=== PATIENT | male | born 1960 | race Caucasian/White ===

== ENCOUNTER 2019-10-18 08:41 | Inpatient (IN) | payer BC, SELFPAY ==
[2019-10-18] MEDS ORDERED: MORPHINE SULFATE 4 MG INJ IV PRN (17:03)
[2019-10-18] MEDS ORDERED: Phenergan 25 MG INJ IV PRN (17:03)
[2019-10-18] MEDS ORDERED: PHARMACY DOSING REQUIRED: VANCOMYCIN MC ONE (17:15)
[2019-10-18 17:23] LABS: Hematocrit 48.1 % (42-50); Hemoglobin 16.3 gm/dl (12.5-18.0); Mean Cell Volume 95.2 fl (78-100); Mean Corpuscular Hemoglobin 32.3 pg (26-32); Mean Corpuscular Hgb Concent. 33.9 g/dl (32-36); Mean Platelet Volume 10.5 fl (7.5-11.0); Platelet Count 315 K/mm3 (150-450); Red Blood Count 5.05 M/mm3 (4.1-5.6); Red Cell Distribution Width 12.8 % (11.5-14.0); White Blood Count 9.5 K/mm3 (4.0-10.5)
[2019-10-18 17:29] LABS: ALBUMIN 4.3 g/dL (3.5-5.0); ALKALINE PHOSPHATASE 129 U/L (38-126); ANION GAP 20.2 MEQ/L (5-15); BLOOD UREA NITROGEN 20 mg/dL (9-20); CHLORIDE 92 mmol/L (98-107); Calcium 9.5 mg/dL (8.4-10.2); Carbon Dioxide 24 mmol/L (22-30); Creatinine 1 1.18 mg/dL (0.66-1.25); Glucose 436 mg/dL (74-106); Potassium 3.9 mmol/L (3.5-5.1); SGOT/AST 22 U/L (17-59); SGPT/ALT 16 U/L (0-50); SODIUM 133 mmol/L (137-145); Total Protein 8.5 g/dL (6.3-8.2)
[2019-10-18] MEDS ORDERED: VANCOMYCIN 2 GRAM/400 ML BAG 2 GM/400 ML PIGGYBACK IV SCH (18:00)
--- NOTE | 2019-10-18 19:16 | PCM.HP ---
History of Present Illness - Chief Complaint Chief Complaint: abcess History of Present Illness: is a 58 year old male pt of Dr. Craig with PMHx diabetes mellitus ( untreated) who was seen in today by GOVERNMENT RELATIONS DIRECTOR c/o large swelling on his head x 2 weeks. He initially hit his head on a pest control applicator and noticed the area getting gradually bigger. Denies LOC. Denies fever. He did notice some yellow drainage. At a wound cx was taken and I was called for direct admission ( after Dr. Craig was notified). Of note, pt says his BS was 600 a few years ago when he was septic. His BS today was 436 but he was denying to the nurses that he was diabetic. He states that he was on vancomycin when he went home from [facility] with a PICC line and didn't have any trouble with it. - Review of Systems Musculoskeletal: Injury (to head 2 wks ago) Skin: Other (swelling on scalp with drainage) Medications & Allergies Home Medications: Home Medication List No Reportable Medications [No Reported Medications] 10/18/19 [History Confirmed 10/18/19] Allergies/Adverse Reactions: Allergies Allergy/AdvReac Type Severity Reaction Status Date / Time Penicillins Allergy Severe Hives Verified 10/18/19 17:12 Sulfa (Sulfonamide Allergy Severe Hives Verified 10/18/19 17:12 Antibiotics) - Past Medical History Past Medical History: No Neurological History: No Pertinent History ENT History: No Pertinent History Cardiac History: No Pertinent History Respiratory History: No Pertinent History Endocrine Medical History: Diabetes Type I Musculoskelatal History: No Pertinent History GI Medical History: No Pertinent History History: Other Pyscho-Social History: No Pertinent History Male Reproductive Disorders: No Pertinent History Comment: reports hx of diabetes though pt states "I am not diabetic" states he was septic at one time and was placed on insulin at that time though it was only for a short period and is now on nothing. hx of MSSA - Past Surgical History Past Surgical History: Yes Neuro Surgical History: No Pertinent History Cardiac History: No Pertinent History Respiratory Surgery: No Pertinent History GI Surgical History: Hernia Repair Genitourinary Surgical Hx: No Pertinent History Musculskeletal Surgical Hx: No Pertinent History Male Surgical History: No Pertinent History - Social History Smoking Status: Never smoker Exposure to second hand smoke: No Alcohol: None - Physical Exam Vital Signs: Vital Signs - 24 hr Temp Pulse Resp BP Pulse Ox 10/18/19 18:05 99.6 F 103 H 18 130/88 99 General Appearance: no apparent distress, alert Neurologic Exam: oriented x 3, cooperative Eye Exam: eyes nml inspection Ears, Nose, Throat Exam: moist mucous membranes Neck Exam: normal inspection Respiratory Exam: normal breath sounds, lungs clear, No crackles/rales, No rhonchi, No wheezing Cardiovascular Exam: regular rate/rhythm, normal heart sounds, No murmur Gastrointestinal/Abdomen Exam: soft, normal bowel sounds, No tenderness, No distention, No mass, No guarding, No rebound Back Exam: normal inspection, No rash Extremity Exam: normal inspection, No pedal edema, No swelling Skin Exam: warm, dry, No rash Wound Assessment: L parietal scalp with baseball sized firm lesion that is somewhat fluctuant and has a pustular central area. Results - Labs Lab/Micro Results: Lab Results-Last 24 Hours 10/18/19 10/18/19 10/18/19 Range/Units 17:00 17:00 17:20 WBC 9.5 (4.0-10.5) K/mm3 RBC 5.05 (4.1-5.6) M/mm3 Hgb 16.3 (12.5-18.0) gm/dl Hct 48.1 (42-50) % MCV 95.2 (78-100) fl MCH 32.3 H (26-32) pg MCHC 33.9 (32-36) g/dl RDW 12.8 (11.5-14.0) % Plt Count 315 (150-450) K/mm3 MPV 10.5 (7.5-11.0) fl Sodium 133 L (137-145) mmol/L Potassium 3.9 (3.5-5.1) mmol/L Chloride 92 L (98-107) mmol/L Carbon Dioxide 24 (22-30) mmol/L Anion Gap 20.2 H (5-15) MEQ/L BUN 20 (9-20) mg/dL Creatinine 1.18 (0.66-1.25) mg/dL Estimated GFR > 60.0 ML/MIN Glucose 436 H (74-106) mg/dL Hemoglobin A1c > 14.00 H (4.5-6.0) % Calcium 9.5 (8.4-10.2) mg/dL Total Bilirubin 0.60 (0.2-1.3) mg/dL AST 22 (17-59) U/L ALT 16 (0-50) U/L Alkaline Phosphatase 129 H (38-126) U/L Serum Total Protein 8.5 H (6.3-8.2) g/dL Albumin 4.3 (3.5-5.0) g/dL Assessment/Plan (1) Abscess Current Visit: Yes Status: Acute Assessment & Plan: Dr. Cobb saw the pt, thank you, and will be doing I&D in the morning. Likely started as hematoma and now abscessed. Pt will be put on vancomycin. Culture is pending, done at [facility] today. Code(s): L02.91 - CUTANEOUS ABSCESS, UNSPECIFIED (2) Diabetes mellitus Current Visit: Yes Status: Acute Qualifiers: Diabetes mellitus type: type 2 Diabetes mellitus alf insulin use: without terminal worker use Diabetes mellitus complication status: without complication Qualified Code(s): E11.9 - Type 2 diabetes mellitus without complications Assessment & Plan: A1c is pending. I explained to pt that his sugar should never be over 200, that he is in fact diabetic. Will need to start meds to go home on and diabetic education. Code(s): E11.9 - TYPE 2 DIABETES MELLITUS WITHOUT COMPLICATIONS
[2019-10-18] MEDS: Lactated Ringers 1,000 ML IV SCH (19:48)
[2019-10-18 19:51] LABS: Eosinophil 2 % (0.00-3.0); Lymphocytes 16 % (24-44); Monocyte 13 % (0.0-12.0); Neutrophils 69 % (36.-66.); Platelet Estimate NORMAL (NORMAL); Total Cells Counted 100
[2019-10-18] MEDS: TYLENOL 325 MG PO PRN (21:25)
[2019-10-18] MEDS: HUMALOG SQ PRN (23:03)
[2019-10-19 05:26] LABS: Hematocrit 44.8 % (42-50); Mean Cell Volume 96.3 fl (78-100); Mean Corpuscular Hemoglobin 32.3 pg (26-32); Mean Corpuscular Hgb Concent. 33.5 g/dl (32-36); Mean Platelet Volume 9.7 fl (7.5-11.0); Platelet Count 297 K/mm3 (150-450); Red Blood Count 4.65 M/mm3 (4.1-5.6); Red Cell Distribution Width 12.7 % (11.5-14.0); White Blood Count 8.2 K/mm3 (4.0-10.5)
[2019-10-19 05:46] LABS: ALBUMIN 3.5 g/dL (3.5-5.0); ALKALINE PHOSPHATASE 90 U/L (38-126); ANION GAP 15.2 MEQ/L (5-15); BLOOD UREA NITROGEN 18 mg/dL (9-20); CHLORIDE 98 mmol/L (98-107); Calcium 8.6 mg/dL (8.4-10.2); Carbon Dioxide 22 mmol/L (22-30); Creatinine 1 0.95 mg/dL (0.66-1.25); Glucose 248 mg/dL (74-106); Potassium 3.9 mmol/L (3.5-5.1); SGOT/AST 20 U/L (17-59); SGPT/ALT 13 U/L (0-50); SODIUM 132 mmol/L (137-145); Total Protein 6.9 g/dL (6.3-8.2)
[2019-10-19 06:22] LABS: BAND 1 % (0.0-2.0); Lymphocytes 29 % (24-44); Monocyte 6 % (0.0-12.0); Neutrophils 64 % (36.-66.); Platelet Estimate NORMAL (NORMAL); Total Cells Counted 100
--- NOTE | 2019-10-19 08:03 | CONS ---
CONSULT DATE: 10/18/2019 HISTORY: The patient a week and a half ago was helping a relative with lawnmower samir raising his head up striking his left head. He had some pain and swelling. He had some drainage here over the past few days. He was admitted by Dr. Craig. PAST MEDICAL HISTORY: He was quite sick of unknown infection cause and was at back in 2016, he said. PAST SURGICAL HISTORY: He denied prior surgery on his head. MEDICATIONS: He has been on some Novolin, metoprolol. ALLERGIES: PENICILLIN. CEFAZOLIN. SULFA. IT SOUNDS LIKE HE TOOK SOME VANCOMYCIN IN THE PAST. FAMILY HISTORY: Negative in regards to this problem. SOCIAL HISTORY: No smoking. REVIEW OF SYSTEMS: Fourteen systems reviewed per admission assessment, history and physical. No chest pain or palpitations. He was afebrile earlier. Other systems negative or noncontributory as above and per preadmission questionnaire. LAB DATA AND TESTS: He had some cultures taken apparently. White count on the chart. Glucose was 400. PHYSICAL EXAMINATION: Blood pressure 122/72, heart rate 68. GENERAL: No acute distress. HEENT: Sclera nonicteric. No blood per eyes, ears, nose or mouth. He has a raised area just slight erythema, no significant fluctuance left parietal area posterior scalp. NECK: No JVD. CHEST: Equal excursion, nonlabored breathing. CVS: Regular rhythm and pulse. ABDOMEN: Soft, nontender. EXTREMITIES: No cyanosis. NEURO: Alert, moving extremities grossly symmetrically. No gross localized motor deficit. IMPRESSION: Blunt head trauma a week and a half or so ago, some swelling and drainage. It sounds like he probably had initial hematoma whether it became infected or just a hematoma trying to drain, either way he will be started on some empiric antibiotics. He is not NPO currently and OR team is not here at this time of night. Will see about getting him into the OR schedule tomorrow for drainage and/or possible debridement. General risk of bleeding or infection, risk of ongoing infection possibly requiring other procedure, general risk of anesthesia, deep venous thrombosis, pulmonary embolism, pneumonia but not limited to, general risk of aches and pains, burning or numbness senior living or chronic in nature. Consent is obtained, will proceed tomorrow when OR time available.
[2019-10-19 09:08] LABS: Appearance CLEAR (CLEAR); Bilirubin NEGATIVE (NEGATIVE); Blood SMALL Ery/ul (0-5); Glucose >=500 mg/dL (NEGATIVE); Ketones TRACE (NEGATIVE); Leukocyte Esterase NEGATIVE (NEGATIVE); Mucus SLIGHT /HPF (NEGATIVE); Nitrite NEGATIVE (NEGATIVE); Protein,Urine Dip 30 (Negative); Specific Gravity 1.029 (1.005-1.025); Urobilinogen NEGATIVE mg/dL (0-1)
[2019-10-19] MEDS: HUMALOG SQ PRN ×3 (09:40→20:38)
[2019-10-19] MEDS: VANCOMYCIN 1.5 GRAM/300 ML BAG 1.5 GM/300 ML PIGGYBACK IV SCH ×2 (09:40→22:22)
[2019-10-19] MEDS: Lactated Ringers 1,000 ML IV SCH ×2 (12:39→17:48)
[2019-10-19] MEDS: TYLENOL 325 MG PO PRN (12:50)
[2019-10-19] MEDS: Lantus Insulin SQ SCH (14:04)
[2019-10-19] MEDS ORDERED: Xylocaine-Mpf 2% 5 Ml Vial ONE (14:44)
[2019-10-19] MEDS ORDERED: Decadron 4 MG INJ ONE (14:44)
[2019-10-19] MEDS ORDERED: SUBLIMAZE 100 MCG/2 ML ONE (14:44)
[2019-10-19] MEDS ORDERED: DIPRIVAN 200 MG/20 ML IV ONE (14:44)
[2019-10-19] MEDS ORDERED: Quelicin Fliptop 200 MG/10 ML ONE (14:44)
[2019-10-19] MEDS ORDERED: Zofran 4 MG/2 ML VIAL ONE (14:44)
[2019-10-19] MEDS ORDERED: Zemuron 100 MG/10 ML ONE (14:44)
[2019-10-19] MEDS ORDERED: Ketamine HCl 50 MG/ML ONE (14:45)
--- NOTE | 2019-10-19 16:01 | PCM.NOTE ---
Date and Time: 10/19/19 1559 - late entry for 10/19/19 0730 Subjective Assessment: Pt w/o complaints. NPO currently for surgery. - Review of Systems Constitutional: Fever (Tmax 100.7) Skin: Other (exudate from lesion) Objective Exam General Appearance: no apparent distress, alert Neurologic Exam: oriented x 3, cooperative Skin Exam: warm, dry, other (L parietal wound with more drainage than yesterday , otherwise unchanged (baseball sized protrusion, firm, with yellow exudate)), No rash Wound Assessment: Skin/Wound Assessment Wound/Incision Assessment Start: 10/18/19 18: 25 Text: Status: Active Freq: Q6H Protocol: Document 10/19/19 14:00 ALIVIA (Rec: 10/19/19 14:10 ALIVIA [id number]) Wound/Incision Assessment Left Upper Head Wound Assessment Shift Assessment Wound Type Abcess Wound Stage Non Pressure Wound Drainage Amount Moderate Drainage Description Purulent Drainage Odor Mild Odor General Appearance Reddened Draining Surrounding Tissue Dark Red Edematous Topical Solution/Irrigant Saline Irrigant Packing Type Gauze Pads Comment Large abcess with moderate edema and moderate amount of pyrulent drainage, abd pad applied Wound Photo Photo Taken Yes Neck Exam: normal inspection Respiratory Exam: normal breath sounds, lungs clear, No crackles/rales, No rhonchi, No wheezing Cardiovascular Exam: regular rate/rhythm, normal heart sounds, No murmur Gastrointestinal/Abdomen Exam: soft, normal bowel sounds, No tenderness, No distention, No mass, No guarding, No rebound Extremity Exam: No pedal edema, No swelling OBJECTIVE DATA Vital Signs: Vital Signs - 24 hr Temp Pulse Resp BP Pulse Ox 10/19/19 12:00 100.2 F 78 18 139/80 96 10/19/19 07:23 100.1 F 77 18 144/83 93 L 10/19/19 05:00 100.3 F 75 16 140/84 96 10/19/19 04:00 100.3 F 75 16 140/84 96 10/18/19 23:11 99.5 F 91 H 18 140/82 96 10/18/19 20:00 100.7 F 91 H 18 148/88 96 10/18/19 18:05 99.6 F 103 H 18 130/88 99 Pain Assessment - Last Documented Pain Intensity 2 Pain Scale Used 0-10 Pain Scale Intake and Output: Intake & Output 10/17/19 10/18/19 10/19/19 10/20/19 11:59 11:59 11:59 11:59 Intake Total 1219 Output Total 925 Balance 294 Weight 103 kg Lab Results: Accuchecks Date 10/19/19 Date 10/19/19 Time 11:30 Time 09:40 Accucheck Value: 214 Accucheck Value: 222 Accucheck Value: 336 Lab Results-Last 24 Hours 10/18/19 10/18/19 10/18/19 Range/Units 17:00 17:00 17:20 WBC 9.5 (4.0-10.5) K/mm3 RBC 5.05 (4.1-5.6) M/mm3 Hgb 16.3 (12.5-18.0) gm/dl Hct 48.1 (42-50) % MCV 95.2 (78-100) fl MCH 32.3 H (26-32) pg MCHC 33.9 (32-36) g/dl RDW 12.8 (11.5-14.0) % Plt Count 315 (150-450) K/mm3 MPV 10.5 (7.5-11.0) fl Segmented Neutrophils 69 H (36.-66.) % Band Neutrophils (0.0-2.0) % Lymphocytes (Manual) 16 L (24-44) % Monocytes (Manual) 13 H (0.0-12.0) % Eosinophils (Manual) 2 (0.00-3.0) % Platelet Estimate NORMAL (NORMAL) RBC Morphology NORMAL Sodium 133 L (137-145) mmol/L Potassium 3.9 (3.5-5.1) mmol/L Chloride 92 L (98-107) mmol/L Carbon Dioxide 24 (22-30) mmol/L Anion Gap 20.2 H (5-15) MEQ/L BUN 20 (9-20) mg/dL Creatinine 1.18 (0.66-1.25) mg/dL Estimated GFR > 60.0 ML/MIN Glucose 436 H (74-106) mg/dL Hemoglobin A1c > 14.00 H (4.5-6.0) % Calcium 9.5 (8.4-10.2) mg/dL Total Bilirubin 0.60 (0.2-1.3) mg/dL AST 22 (17-59) U/L ALT 16 (0-50) U/L Alkaline Phosphatase 129 H (38-126) U/L Serum Total Protein 8.5 H (6.3-8.2) g/dL Albumin 4.3 (3.5-5.0) g/dL Urine Color (YELLOW) Urine Appearance (CLEAR) Urine pH (5-6) Ur Specific [place] (1.005-1.025) Urine Protein (Negative) Urine Ketones (NEGATIVE) Urine Blood (0-5) Sajan/ul Urine Nitrite (NEGATIVE) Urine Bilirubin (NEGATIVE) Urine Urobilinogen (0-1) mg/dL Ur Leukocyte Esterase (NEGATIVE) Urine WBC (Auto) (0-5) /HPF Urine RBC (Auto) (0-2) /HPF U Epithel Cells (Auto) (FEW) /HPF Urine Bacteria (Auto) (NEGATIVE) /HPF Urine Mucus (Auto) (NEGATIVE) /HPF Urine Culture Reflexed (NO) Urine Glucose (NEGATIVE) mg/dL 10/19/19 10/19/19 10/19/19 Range/Units 04:57 04:57 07:00 WBC 8.2 (4.0-10.5) K/mm3 RBC 4.65 (4.1-5.6) M/mm3 Hgb 15.0 (12.5-18.0) gm/dl Hct 44.8 (42-50) % MCV 96.3 (78-100) fl MCH 32.3 H (26-32) pg MCHC 33.5 (32-36) g/dl RDW 12.7 (11.5-14.0) % Plt Count 297 (150-450) K/mm3 MPV 9.7 (7.5-11.0) fl Segmented Neutrophils 64 (36.-66.) % Band Neutrophils 1 (0.0-2.0) % Lymphocytes (Manual) 29 (24-44) % Monocytes (Manual) 6 (0.0-12.0) % Eosinophils (Manual) (0.00-3.0) % Platelet Estimate NORMAL (NORMAL) RBC Morphology NORMAL Sodium 132 L (137-145) mmol/L Potassium 3.9 (3.5-5.1) mmol/L Chloride 98 (98-107) mmol/L Carbon Dioxide 22 (22-30) mmol/L Anion Gap 15.2 H (5-15) MEQ/L BUN 18 (9-20) mg/dL Creatinine 0.95 (0.66-1.25) mg/dL Estimated GFR > 60.0 ML/MIN Glucose 248 H (74-106) mg/dL Hemoglobin A1c (4.5-6.0) % Calcium 8.6 (8.4-10.2) mg/dL Total Bilirubin 0.40 (0.2-1.3) mg/dL AST 20 (17-59) U/L ALT 13 (0-50) U/L Alkaline Phosphatase 90 (38-126) U/L Serum Total Protein 6.9 (6.3-8.2) g/dL Albumin 3.5 (3.5-5.0) g/dL Urine Color YELLOW (YELLOW) Urine Appearance CLEAR (CLEAR) Urine pH 5.0 (5-6) Ur Specific [place] 1.029 (1.005-1.025) Urine Protein 30 (Negative) Urine Ketones TRACE (NEGATIVE) Urine Blood SMALL (0-5) Sajan/ul Urine Nitrite NEGATIVE (NEGATIVE) Urine Bilirubin NEGATIVE (NEGATIVE) Urine Urobilinogen NEGATIVE (0-1) mg/dL Ur Leukocyte Esterase NEGATIVE (NEGATIVE) Urine WBC (Auto) NONE (0-5) /HPF Urine RBC (Auto) NONE (0-2) /HPF U Epithel Cells (Auto) NONE (FEW) /HPF Urine Bacteria (Auto) NONE (NEGATIVE) /HPF Urine Mucus (Auto) SLIGHT (NEGATIVE) /HPF Urine Culture Reflexed NO (NO) Urine Glucose >=500 (NEGATIVE) mg/dL Multi-Disciplinary Progress Notes: Multi-Disciplinary Progress Notes 10/19/19 10:22 Case Management Note by Inna Harrison PATIENT THINKS HE HAS A WORKING GLUCOMETER AT HOME FROM THE PAST BUT THINKS THE STRIPS ARE LIKELY , WILL NEED ADDRESSED AT [place] Initialized on 10/19/19 10:22 - END OF NOTE Assessment/Plan (1) Abscess Current Visit: Yes Status: Acute Assessment & Plan: To surgery for I&D some time today. Code(s): L02.91 - CUTANEOUS ABSCESS, UNSPECIFIED (2) Diabetes mellitus Current Visit: Yes Status: Acute Qualifiers: Diabetes mellitus type: type 2 Diabetes mellitus alf insulin use: without tank terminal gauger use Diabetes mellitus complication status: without complication Qualified Code(s): E11.9 - Type 2 diabetes mellitus without complications Assessment & Plan: Discussed his A1c > 14; diabetic education today. Code(s): E11.9 - TYPE 2 DIABETES MELLITUS WITHOUT COMPLICATIONS
[2019-10-19] MEDS ORDERED: BRIDION 200MG/2ML IV ONE (16:10)
[2019-10-19] MEDS ORDERED: NORCO 5/325 MG PO PRN (18:16)
[2019-10-19] MEDS ORDERED: MORPHINE SULFATE 2 MG INJ IV PRN (18:18)
[2019-10-20] MEDS: TYLENOL 325 MG PO PRN ×3 (06:58→19:29)
--- NOTE | 2019-10-20 07:54 | OP ---
SURGERY DATE/TIME: 10/19/2019 1548 PREOPERATIVE DIAGNOSIS: Scalp cellulitis, question infected hematoma or abscess, diabetes, need for drainage. POSTOPERATIVE DIAGNOSIS: Scalp abscess. PROCEDURE: Incision, drainage, culture, irrigation and packing 9 cm scalp abscess left parieto-occipital area scalp. SURGEON: Dr. Deny Cobb. ANESTHESIA: General. ESTIMATED BLOOD LOSS: Minimal. INDICATIONS: As noted above. Risks and benefits explained in detail and not limited to and consent obtained. DESCRIPTION OF PROCEDURE AND FINDINGS: General anesthesia induced. Prepped and draped in usual sterile fashion. After official time out and no disagreement with planned procedure, he had some purulent drainage from this on his scalp. This is opened up wider just a little bit under a dime size, enlarging and a cupful of pus exuding from this 9 cm scalp infection. There is question whether he had original head trauma. There is question whether he had original possible hematoma that became infected, either way a large amount of pus. Deep culture was taken for pathology. Copious amount of irrigation. To decrease risk of dependent pooling, a counter incision was made more caudally on the large abscess cavity. Copious amount of irrigation irrigated until clear as possible. Minimal ooze at the incision site. Appear to have adequate hemostasis. The wound is then packed with some Iodoform 0.25 inch Nu Gauze. Both wounds are packed with Iodoform and sterile dressing and head wrap. The patient tolerated the procedure well. There were no immediate complications. I will see if there is any family available to discuss the findings with. Otherwise, he will be sent back to the floor to continue IV antibiotics and continue medical management.
[2019-10-20] MEDS: Lactated Ringers 1,000 ML IV SCH (08:18)
[2019-10-20] MEDS: HUMALOG SQ PRN ×4 (08:19→21:12)
[2019-10-20] MEDS: Lantus Insulin SQ SCH (08:19)
--- NOTE | 2019-10-20 08:46 | PCM.NOTE ---
Date and Time: 10/20/19840 Subjective Assessment: Pt has temp this morning to 103. Aubrey po. Otherwise feeling fine. Had I&D yesterday. - Review of Systems Constitutional: Fever Neurological: Other (abscess) Objective Exam General Appearance: no apparent distress, alert Neurologic Exam: oriented x 3, cooperative Skin Exam: warm, diaphoresis, other (head with dressing in place), No rash Wound Assessment: Skin/Wound Assessment Wound/Incision Assessment Start: 10/18/19 18: 25 Text: Status: Active Freq: Q6H Protocol: Document 10/20/19 02:00 PDT (Rec: 10/20/19 03:13 PDT [id number]) Wound/Incision Assessment Left Upper Head Wound Assessment Shift Assessment Wound Type Abcess Wound Stage Non Pressure Wound Drainage Amount Minimal Drainage Description Serosanguineous Drainage Odor None/Absent Packing Type Gauze Pads Comment Pt has dressing covered by stocking to head Dressing Has some shadow drainage noted clean dry and intact. Wound Photo Photo Taken Yes Eye Exam: eyes nml inspection Ears, Nose, Throat Exam: moist mucous membranes Respiratory Exam: normal breath sounds, lungs clear, No crackles/rales, No rhonchi, No wheezing Cardiovascular Exam: regular rate/rhythm, normal heart sounds, No murmur Gastrointestinal/Abdomen Exam: soft, normal bowel sounds, No tenderness, No distention, No mass, No guarding, No rebound Extremity Exam: normal inspection, No pedal edema, No swelling OBJECTIVE DATA Vital Signs: Vital Signs - 24 hr Temp Pulse Resp BP Pulse Ox 10/20/19 08:37 102.1 F 10/20/19 07:13 103.4 F 10/20/19 07:12 103 F 96 H 20 141/81 96 10/20/19 03:00 98.6 F 64 20 159/90 99 10/20/19 00:00 99.0 F 77 18 137/79 95 10/19/19 19:41 98.9 F 83 18 138/91 96 10/19/19 12:00 100.2 F 78 18 139/80 96 Pain Assessment - Last Documented Pain Intensity 5 Pain Scale Used 0-10 Pain Scale Intake and Output: Intake & Output 10/17/19 10/18/19 10/19/19 10/20/19 11:59 11:59 11:59 11:59 Intake Total 1219 3692 Output Total 923 7490 Balance 294 2442 Weight 103 kg Lab Results: Accuchecks Date 10/19/19 Date 10/19/19 Date 10/19/19 Date 10/19/19 Time 21:34 Time 16:30 Time 11:30 Time 09:40 Accucheck Value: 323 Accucheck Value: 166 Accucheck Value: 214 Accucheck Value: 222 Lab Results-Last 24 Hours 10/19/19 Range/Units 07:00 Urine Color YELLOW (YELLOW) Urine Appearance CLEAR (CLEAR) Urine pH 5.0 (5-6) Ur Specific [place] 1.029 (1.005-1.025) Urine Protein 30 (Negative) Urine Ketones TRACE (NEGATIVE) Urine Blood SMALL (0-5) Sajan/ul Urine Nitrite NEGATIVE (NEGATIVE) Urine Bilirubin NEGATIVE (NEGATIVE) Urine Urobilinogen NEGATIVE (0-1) mg/dL Ur Leukocyte Esterase NEGATIVE (NEGATIVE) Urine WBC (Auto) NONE (0-5) /HPF Urine RBC (Auto) NONE (0-2) /HPF U Epithel Cells (Auto) NONE (FEW) /HPF Urine Bacteria (Auto) NONE (NEGATIVE) /HPF Urine Mucus (Auto) SLIGHT (NEGATIVE) /HPF Urine Culture Reflexed NO (NO) Urine Glucose >=500 (NEGATIVE) mg/dL Multi-Disciplinary Progress Notes: Multi-Disciplinary Progress Notes 10/19/19 10:22 Case Management Note by Inna Harrison PATIENT THINKS HE HAS A WORKING GLUCOMETER AT HOME FROM THE PAST BUT THINKS THE STRIPS ARE LIKELY , WILL NEED ADDRESSED AT [place] Initialized on 10/19/19 10:22 - END OF NOTE Assessment/Plan (1) Abscess Current Visit: Yes Status: Acute Assessment & Plan: Drained by surgery yesterday. On IV vancomycin; new fever this morning, higher than previously noted. Will add IV rocephin to cover G- (preliminary report on culture G+, but wound culture not totally reliable). Code(s): L02.91 - CUTANEOUS ABSCESS, UNSPECIFIED (2) Diabetes mellitus Current Visit: Yes Status: Chronic Qualifiers: Diabetes mellitus type: type 2 Diabetes mellitus longterm insulin use: without longterm use Diabetes mellitus complication status: without complication Qualified Code(s): E11.9 - Type 2 diabetes mellitus without complications Assessment & Plan: started lantus 15 units today. Code(s): E11.9 - TYPE 2 DIABETES MELLITUS WITHOUT COMPLICATIONS
[2019-10-20] MEDS ORDERED: TROUGH DRUG LEVELS IJ ONE (09:00)
[2019-10-20 09:35] LABS: Hematocrit 40.9 % (42-50); Hemoglobin 14.3 gm/dl (12.5-18.0); Mean Cell Volume 94.9 fl (78-100); Mean Corpuscular Hemoglobin 33.2 pg (26-32); Mean Platelet Volume 9.3 fl (7.5-11.0); Platelet Count 291 K/mm3 (150-450); Red Blood Count 4.31 M/mm3 (4.1-5.6); Red Cell Distribution Width 12.6 % (11.5-14.0); White Blood Count 7.6 K/mm3 (4.0-10.5)
[2019-10-20] MEDS: ROCEPHIN 1 Gm-D5w 50 ml Bag** 1 G/50 ML IVPB IV SCH (09:46)
[2019-10-20] MEDS: PEROXIDE 3% TOP SCH ×2 (11:14→21:19)
[2019-10-20] MEDS: VANCOMYCIN 1.5 GRAM/300 ML BAG 1.5 GM/300 ML PIGGYBACK IV SCH ×2 (11:35→21:12)
[2019-10-21] MEDS: TYLENOL 325 MG PO PRN ×4 (02:14→21:13)
--- NOTE | 2019-10-21 09:12 | PCM.NOTE ---
Date and Time: 10/21/19908 Subjective Assessment: Pt had fever to 103 at 7 pm last night. Afebrile currently. Has a "pinching" feeling in the head. Aubrey po well. - Review of Systems Constitutional: Fever Skin: Other (head pain and drainage) Objective Exam General Appearance: no apparent distress, alert Neurologic Exam: oriented x 3, cooperative Skin Exam: other (L parietal scalp with decreased turgor of lesion; there is yellow exudate present.) Wound Assessment: Skin/Wound Assessment Wound/Incision Assessment Start: 10/18/19 18: 25 Text: Status: Active Freq: Q6H Protocol: Document 10/21/19 02:00 ST (Rec: 10/21/19 04:38 ST [id number]) Wound/Incision Assessment Left Upper Head Wound Assessment Shift Assessment Wound Type Abcess Wound Stage Non Pressure Wound Drainage Amount Minimal Drainage Description Serosanguineous Drainage Odor None/Absent Packing Type Gauze Pads Wound Photo Photo Taken Yes Eye Exam: eyes nml inspection Respiratory Exam: normal breath sounds, lungs clear, No crackles/rales, No rhonchi, No wheezing Cardiovascular Exam: regular rate/rhythm, normal heart sounds, No murmur Gastrointestinal/Abdomen Exam: soft, normal bowel sounds, No tenderness, No distention, No mass, No guarding, No rebound Extremity Exam: No pedal edema, No swelling Back Exam: normal inspection, No rash OBJECTIVE DATA Vital Signs: Vital Signs - 24 hr Temp Pulse Resp BP Pulse Ox 10/21/19 07:06 98.3 F 66 18 140/83 98 10/21/19 04:00 98.8 F 64 18 134/81 95 10/21/19 00:07 98.8 F 71 16 137/89 97 10/20/19 19:30 103.1 F 99 H 20 145/87 96 10/20/19 16:40 99.1 F 76 18 171/89 97 10/20/19 13:06 100.7 F 10/20/19 11:28 99 F 75 18 146/87 98 Pain Assessment - Last Documented Pain Intensity 0 Pain Scale Used 0-10 Pain Scale Intake and Output: Intake & Output 10/18/19 10/19/19 10/20/19 10/21/19 11:59 11:59 11:59 11:59 Intake Total 1219 3932 2692 Output Total 926 1525 1400 Balance 294 2407 1292 Weight 103 kg Lab Results: Accuchecks Date 10/20/19 Date 10/20/19 Date 10/20/19 Time 21:40 Time 16:30 Time 11:30 Accucheck Value: 286 Accucheck Value: 236 Accucheck Value: 249 Lab Results-Last 24 Hours 10/20/19 10/20/19 Range/Units 09:39 09:39 WBC 7.6 (4.0-10.5) K/mm3 RBC 4.31 (4.1-5.6) M/mm3 Hgb 14.3 (12.5-18.0) gm/dl Hct 40.9 L (42-50) % MCV 94.9 (78-100) fl MCH 33.2 H (26-32) pg MCHC 35.0 (32-36) g/dl RDW 12.6 (11.5-14.0) % Plt Count 291 (150-450) K/mm3 MPV 9.3 (7.5-11.0) fl Vancomycin Trough 12.95 (10-20) ug/mL Multi-Disciplinary Progress Notes: Multi-Disciplinary Progress Notes 10/20/19 11:27 Case Management Note by Inna Harrison S/W PATIENT REGARDING DC NEEDS AT THIS TIME- PATIENT MAY NEED ASSISTANCE WITH DRESSING CHANGES D/T POSITION OF WOUND. WILL CONTINUE TO FOLLOW AND ASSESS Initialized on 10/20/19 11:27 - END OF NOTE 10/20/19 09:55 (created 10/20/19 10:56) Case Management Note by Isabel Armenta RN, DR. OROSCO ROUNDED AND EVALUATED, REPORTS THAT PT WILL NEED ATLEAST 2 MORE DAYS OF ACUTE HOSPITAL TREATMENT. AWAIT WOUND CULTURE FROM SURGERY TO RETURN. DR. OROSCO DC'D PACKING TODAY, WANTS WOUND OPEN TO DRAIN, AND CLEANSE WITH PEROXIDE DAILY. INSTRUCTED PT TO SHOWER AND KEEP WOUND CLEAN. Initialized on 10/20/19 10:56 - END OF NOTE Assessment/Plan (1) Abscess Current Visit: Yes Status: Acute Assessment & Plan: Pt is on day #4 of vancomycin and day #2 of rocephin. He still ran fever to 103 last night, but is just now on rocephin x 24h. If afebrile tonight he may be able to d/c home tomorrow, but I anticipate it may be several days until his fever is completely gone and he's ready to go home. Code(s): L02.91 - CUTANEOUS ABSCESS, UNSPECIFIED (2) Diabetes mellitus Current Visit: Yes Status: Chronic Qualifiers: Diabetes mellitus type: type 2 Diabetes mellitus usp insulin use: without usp use Diabetes mellitus complication status: without complication Qualified Code(s): E11.9 - Type 2 diabetes mellitus without complications Code(s): E11.9 - TYPE 2 DIABETES MELLITUS WITHOUT COMPLICATIONS
[2019-10-21] MEDS: ROCEPHIN 1 Gm-D5w 50 ml Bag** 1 G/50 ML IVPB IV SCH (09:35)
[2019-10-21] MEDS: PEROXIDE 3% TOP SCH ×2 (09:37→21:39)
[2019-10-21] MEDS: Lantus Insulin SQ SCH (09:38)
[2019-10-21] MEDS: VANCOMYCIN 1.5 GRAM/300 ML BAG 1.5 GM/300 ML PIGGYBACK IV SCH ×2 (10:46→21:13)
[2019-10-21] MEDS ORDERED: APRESOLINE 20 MG/ML INJ IV ONE (16:52)
[2019-10-21] MEDS: HUMALOG SQ PRN ×2 (17:07→21:14)
[2019-10-21] MEDS: Lactated Ringers 1,000 ML IV SCH ×2 (17:42→19:00)
[2019-10-22] MEDS: TYLENOL 325 MG PO PRN (03:20)
[2019-10-22] MEDS: Lantus Insulin SQ SCH (08:18)
[2019-10-22] MEDS: ROCEPHIN 1 Gm-D5w 50 ml Bag** 1 G/50 ML IVPB IV SCH (09:19)
[2019-10-22] MEDS: PEROXIDE 3% TOP SCH (09:22)
[2019-10-22] MEDS: VANCOMYCIN 1.5 GRAM/300 ML BAG 1.5 GM/300 ML PIGGYBACK IV SCH (09:55)
[2019-10-22 11:47] LABS: Hematocrit 45.8 % (42-50); Hemoglobin 15.4 gm/dl (12.5-18.0); Mean Corpuscular Hgb Concent. 33.6 g/dl (32-36); Mean Platelet Volume 9.4 fl (7.5-11.0); Platelet Count 305 K/mm3 (150-450); Red Blood Count 4.82 M/mm3 (4.1-5.6); Red Cell Distribution Width 12.9 % (11.5-14.0); White Blood Count 5.8 K/mm3 (4.0-10.5)
[2019-10-22 11:50] VITALS: BP 168/96; PULSE 69; O2SAT 97
[2019-10-22] MEDS: HUMALOG SQ PRN (12:27)
[2019-10-22 12:30] LABS: ANION GAP 14.8 MEQ/L (5-15); BLOOD UREA NITROGEN 11 mg/dL (9-20); CHLORIDE 103 mmol/L (98-107); Carbon Dioxide 22 mmol/L (22-30); Creatinine 1 0.71 mg/dL (0.66-1.25); Glucose 233 mg/dL (74-106); SODIUM 136 mmol/L (137-145)
[2019-10-22 12:34] LABS: ATYPICAL LYMPHS 1 %; BAND 2 % (0.0-2.0); Basophil 1 % (0.0-1.0); Eosinophil 4 % (0.00-3.0); Lymphocytes 29 % (24-44); Monocyte 5 % (0.0-12.0); Neutrophils 58 % (36.-66.); Total Cells Counted 100; Toxic Granulation 1+
[2019-10-22 12:35] LABS: Platelet Estimate NORMAL (NORMAL)
--- NOTE | 2019-10-22 13:36 | PCM.DS ---
Discharge Summary Date of Admission: 10/20/19 08:41 Admitting Physician: BRIAN JEFFERS Consults: Consults on Case 10/18/19 16:52 Consult Surgery ROUTINE Primary Care Provider: MARLA,MELANIE Allergies Allergies Penicillins Allergy (Severe, Verified 10/18/19 17:12) Hives hives Sulfa (Sulfonamide Antibiotics) Allergy (Severe, Verified 10/18/19 17:12) [facility] [place] Summary - Hospital Course Hospital Course: Pt is 58 yo male with new dx of diabetes who was admitted after being seen in with hematoma/abscess on his scalp. Surgery did I&D, thank you, and pt was thought to have started with hematoma and developed an abscess - cx + for Staph aureus. He was febrile for several days here in the hospital but has now been afebrile for >24 hours. He does not have many complaints about his scalp. He is doing the wound care himself without difficulty. Has been on IV vancomycin and rocephin. Will send pt home on po bactrim. His A1c was >14 and I did discuss this with him, as well as ordering diabetic education. He has been on lantus here 15 units daily with low dose sliding scale - will be sent home on this regimen. He is to f/u Thursday (in 2 d) in the office to ensure that he is still healing well on the bactrim. - Vitals & Intake/Output Vital Signs: Vital Signs Temperature 98.3 F 10/22/19 11:47 Pulse Rate 69 10/22/19 11:47 Respiratory Rate 20 10/22/19 11:47 Blood Pressure 168/96 10/22/19 11:47 O2 Sat by Pulse Oximetry 97 10/22/19 11:47 Intake & Output: Intake & Output 10/20/19 10/21/19 10/22/19 10/23/19 11:59 11:59 11:59 11:59 Intake Total 3932 2692 4298 240 Output Total 1525 1400 2500 400 Balance 2407 1292 1798 -160 Weight 103 kg - Lab Result Diagrams: 10/22/19 11:40 10/22/19 11:40 Lab Results-Last 24 Hrs: Accuchecks Date 10/22/19 Date 10/22/19 Date 10/21/19 Time 11:30 Time 07:30 Time 22:00 Accucheck Value: 239 Accucheck Value: 136 Accucheck Value: 281 Accucheck Value: 207 Lab Results-Last 24 Hours 10/22/19 10/22/19 Range/Units 11:40 11:40 WBC 5.8 (4.0-10.5) K/mm3 RBC 4.82 (4.1-5.6) M/mm3 Hgb 15.4 (12.5-18.0) gm/dl Hct 45.8 (42-50) % MCV 95.0 (78-100) fl MCH 32.0 (26-32) pg MCHC 33.6 (32-36) g/dl RDW 12.9 (11.5-14.0) % Plt Count 305 (150-450) K/mm3 MPV 9.4 (7.5-11.0) fl Segmented Neutrophils 58 (36.-66.) % Band Neutrophils 2 (0.0-2.0) % Lymphocytes (Manual) 29 (24-44) % Monocytes (Manual) 5 (0.0-12.0) % Eosinophils (Manual) 4 H (0.00-3.0) % Basophils (Manual) 1 (0.0-1.0) % Atypical Lymphocytes 1 % Toxic Granulation 1+ Platelet Estimate NORMAL (NORMAL) RBC Morphology NORMAL Sodium 136 L (137-145) mmol/L Potassium 4.0 (3.5-5.1) mmol/L Chloride 103 (98-107) mmol/L Carbon Dioxide 22 (22-30) mmol/L Anion Gap 14.8 (5-15) MEQ/L BUN 11 (9-20) mg/dL Creatinine 0.71 (0.66-1.25) mg/dL Estimated GFR > 60.0 ML/MIN Glucose 233 H (74-106) mg/dL Calcium 9.0 (8.4-10.2) mg/dL Micro Results-Entire Visit: Microbiology 10/19/19 16:04 Abscess Culture - Final Head Staphylococcus Aureus 10/19/19 16:04 Abscess Culture - Final Head Staphylococcus Aureus Accuchecks Date 10/22/19 Date 10/22/19 Date 10/21/19 Time 11:30 Time 07:30 Time 22:00 Accucheck Value: 239 Accucheck Value: 136 Accucheck Value: 281 Accucheck Value: 207 Discharge Exam General Appearance: no apparent distress, alert, obese Neurologic Exam: oriented x 3, cooperative Eye Exam: eyes nml inspection Ears, Nose, Throat Exam: moist mucous membranes Neck Exam: normal inspection Respiratory Exam: normal breath sounds, lungs clear, No crackles/rales, No rhonchi, No wheezing Cardiovascular Exam: regular rate/rhythm, normal heart sounds, No murmur Gastrointestinal/Abdomen Exam: soft, normal bowel sounds, No tenderness, No distention, No mass, No guarding, No rebound Extremity Exam: normal inspection, No pedal edema, No swelling Skin Exam: other (L parietal scalp with decreased size of lesion (less turgid);) Wound Assessment: Skin/Wound Assessment Wound/Incision Assessment Start: 10/18/19 18: 25 Text: Status: Active Freq: Q6H Protocol: Document 10/22/19 08:00 BA (Rec: 10/22/19 08:52 BA [id number]) Wound/Incision Assessment Left Upper Head Wound Assessment Shift Assessment Wound Type Abcess Wound Stage Non Pressure Wound Drainage Amount Minimal Drainage Description Serosanguineous Drainage Odor None/Absent General Appearance Unapproximated Surrounding Tissue Purple Packing Type Gauze Pads Comment cleaned with peroxide bid. Wound Photo Photo Taken Yes Final Diagnosis/Problem List - Final Discharge Diagnosis/Problem (1) Abscess Current Visit: Yes Status: Acute Assessment & Plan: Improved - he will continue wound care and is aware of the importance of keeping the tract open for drainage. Home on bactrim po. F/u in office in 2d. Code(s): L02.91 - CUTANEOUS ABSCESS, UNSPECIFIED (2) Diabetes mellitus Current Visit: Yes Status: Chronic Assessment & Plan: New onset. Will go home on lantus 15 units daily and humalog low dose SS. Will need glucometer, strips, lancets, etc. F/u with PCP. Keep a log, checking BS AC/HS. Did not start pt on ACEi or statin at this time. Will recommend he start an 81mg ASA now. Code(s): E11.9 - TYPE 2 DIABETES MELLITUS WITHOUT COMPLICATIONS - Discharge Disposition: Home, Self-Care Condition: Good Prescriptions: New Insulin Lispro [Humalog Kwikpen U-100] 15 unit SQ DAILY #1 insuln.pen Insulin Glargine,Hum.rec.anlog [Lantus Solostar] 5 unit SQ TID PRN #3 ml PRN Reason: Hyperglycemia Hydrogen Peroxide 3% [Peroxide 3%] 5 ml TOP BID solution Lactobacillus Acidophilus [Acidophilus Lactobacillus] 500 gm MC TID #30 powder Clindamycin HCl 300 mg PO QID #40 capsule Instructions: Wound Care (DC) Additional Instructions: watch for low blood sugar (<70) and symptoms such as shaking, disorientation, and sweats - seek medical attention Follow up with: MELANIE GUTIÉRREZ MD [Primary Care Provider] - 1 Week Forms: Discharge Instructions
== END 2019-10-22 15:05 | disposition home or self-care (01) | DRG 603 ==
LOC: MED SURG 08:41 → OBSVTOIN 10-20 08:41
PROVIDERS: ADMIT Family Medicine; ATTEND Family Medicine
PROC: 0H90XZZ Drainage of Scalp Skin, External Approach (ICD-10-PCS; principal; 2019-10-19)
DX: L02.811 Cutaneous abscess of head [any part, except face] (principal); L03.811 Cellulitis of head [any part, except face]; E11.9 Type 2 diabetes mellitus without complications; Z79.899 Other long term (current) drug therapy
CPT/HCPCS: 36415; 80048; 80053; 80202; 81001; 82962; 83036; 85025; 85027; 87070; 87077; 87186; 88304; G0378; J0330; J0360; J0696; J1100; J1817; J2405; J2704; J3010; A9270-GY; J3370

== ENCOUNTER 2021-04-15 08:29 | Emergency (ER) | payer BC, MEDICAID ==
[2021-04-15] MEDS ORDERED: Sodium Chloride 0.9% 1000 ML 1,000 ML IV STA (08:46)
--- NOTE | 2021-04-15 08:50 | ERPHSYRPT ---
- History of Present Illness Time Seen by Provider: 04/15/21 08:40 Source: patient Exam Limitations: no limitations Physician History: Patient is a 60-year-old male diabetic 6 months post puncture wound to involved right foot has been self treating at home presents to our ED with a 2-day history of progressive swelling pain foul odor. Otherwise no trauma. No fever. No nausea or vomiting. Symptoms are moderate in intensity. No specific worsening or improving factors. Patient voices no other complaints or concerns at this time. Timing/Duration: today Severity: moderate Modifying Factors: Improves With: nothing Associated Symptoms: denies symptoms Allergies/Adverse Reactions: Penicillins Allergy (Severe, Verified 10/29/19 08:15) Hives hives Sulfa (Sulfonamide Antibiotics) Allergy (Severe, Verified 10/29/19 08:15) Hives - Review of Systems Constitutional: No Symptoms, No Fever, No Chills Eyes: No Symptoms Ears, Nose, & Throat: No Symptoms Respiratory: No Symptoms, No Cough, No Dyspnea Cardiac: No Symptoms, No Chest Pain, No Edema, No Syncope Abdominal/Gastrointestinal: No Symptoms, No Abdominal Pain, No Nausea, No Vomiting, No Diarrhea Genitourinary Symptoms: No Symptoms, No Dysuria Musculoskeletal: No Symptoms, No Back Pain, No Neck Pain Skin: No Symptoms, No Rash Neurological: No Symptoms, No Dizziness, No Focal Weakness, No Sensory Changes Psychological: No Symptoms Endocrine: No Symptoms Hematologic/Lymphatic: No Symptoms Immunological/Allergic: No Symptoms All Other Systems: Reviewed and Negative - Past Medical History Pertinent Past Medical History: No Neurological History: No Pertinent History ENT History: No Pertinent History Cardiac History: No Pertinent History Respiratory History: No Pertinent History Endocrine Medical History: Diabetes Type II Musculoskeletal History: No Pertinent History GI Medical History: No Pertinent History History: Other Psycho-Social History: No Pertinent History Male Reproductive Disorders: No Pertinent History Other Medical History: md reports hx of diabetes though pt states "I am not diabetic" states he was septic at one time and was placed on insulin at that t rukhsana though it was only for a short period and is now on nothing. hx of MSSA, psorasis - Past Surgical History Past Surgical History: Yes Neuro Surgical History: No Pertinent History Cardiac: No Pertinent History Respiratory: No Pertinent History Gastrointestinal: Hernia Repair Genitourinary: No Pertinent History Musculoskeletal: No Pertinent History Male Surgical History: No Pertinent History - Social History Smoking Status: Never smoker Exposure to second hand smoke: No Drug Use: none - Nursing Vital Signs Nursing Vital Signs: Initial Vital Signs Temperature 97.6 F 04/15/21 08:30 Pulse Rate 105 H 04/15/21 08:30 Respiratory Rate 20 04/15/21 08:30 Blood Pressure 119/81 04/15/21 08:30 O2 Sat by Pulse Oximetry 97 04/15/21 08:30 Pain Scale Pain Intensity 5 - Physical Exam General Appearance: no apparent distress, alert Eye Exam: PERRL/EOMI, eyes nml inspection Ears, Nose, Throat Exam: normal ENT inspection, TMs normal, pharynx normal, moist mucous membranes Neck Exam: normal inspection, non-tender, supple, full range of motion Respiratory Exam: normal breath sounds, lungs clear, No respiratory distress Cardiovascular Exam: regular rate/rhythm, normal heart sounds, normal peripheral pulses Gastrointestinal/Abdomen Exam: soft, normal bowel sounds, No tenderness, No mass Back Exam: normal inspection, normal range of motion, No CVA tenderness, No vertebral tenderness Extremity Exam: normal inspection, normal range of motion, pelvis stable, other (Right foot shows areas of necrosis there is a foul smell emanating from the foot. Multiple small blisters. There is some crepitation of the dorsum of the foot consistent with subcutaneous gas.) Neurologic Exam: alert, oriented x 3, cooperative, normal mood/affect, sensation nml, No motor deficits Skin Exam: normal color, warm, dry, No rash Lymphatic Exam: No adenopathy SpO2 Interpretation: normal SpO2: 97 O2 Delivery: Room Air - Course Nursing assessment & vital signs reviewed: Yes - Radiology Exams Foot X-ray Interpretation: Teleradiologist Report (Soft tissue swelling to medial soft tissue nodularities largest 2.7 cm and diffuse subcutaneous emphysema centered around the second and third MTP concerning for gas formation infection. Partial third toe amputation. No other bony articular or soft tissue abnormalities.) Ordered Tests: Active Orders 24 hr Category Date Time Status IV Insertion STAT Care 04/15/21 08:46 Active Pulse Oximetry (ED) STAT Care 04/15/21 08:46 Active FOOT (MINIMUM 3 VIEWS) Stat Exams 04/15/21 08:49 Completed BLOOD CULTURE Stat Lab 04/15/21 09:35 Received CBC W DIFF Stat Lab 04/15/21 09:32 Completed CMP Stat Lab 04/15/21 09:32 Completed Medication Summary Generic Name Dose Route Start Last Admin Trade Name Amelia PRN Reason Stop Dose Admin Vancomycin HCl 1 gm in 200 mls @ 125 mls/hr 04/15/21 09:22 04/15/21 09:38 Vancomycin 1 Gram/200 Ml Bag IV 04/15/21 10:57 125 mls/hr STAT ONE 125 mls/hr Administration Discontinued Medications Generic Name Dose Route Start Last Admin Trade Name Amelia PRN Reason Stop Dose Admin Sodium Chloride 1,000 mls @ 999 mls/hr 04/15/21 08:46 04/15/21 09:37 Sodium Chloride 0.9% 1000 Ml IV 04/15/21 09:46 999 mls/hr .Q1H1M STA Administration Levofloxacin/Dextrose 500 mg in 100 mls @ 100 mls/hr 04/15/21 09:00 04/15/21 09:35 Levofloxacin 500mg/100ml D5w IV 04/15/21 09:59 Not Given STAT STA Clindamycin HCl/Dextrose 900 mg in 50 mls @ 100 mls/hr 04/15/21 09:01 04/15/21 09:37 Clindamycin-D5w 900 Mg/50 Ml IV 04/15/21 09:30 100 mls/hr STAT STA 100 mls/hr Administration Vancomycin HCl Confirm 04/15/21 09:23 Vancomycin 1 Gram/200 Ml Bag Administered 04/15/21 09:24 Dose 1 gm in 200 mls @ ud IV .STK-MED ONE Clindamycin HCl/Dextrose Confirm 04/15/21 09:33 Clindamycin-D5w 900 Mg/50 Ml Administered 04/15/21 09:34 Dose 900 mg in 50 mls @ ud IV .STK-MED ONE Sodium Chloride Confirm 04/15/21 09:36 Sodium Chloride 0.9% 1000 Ml Administered 04/15/21 09:37 Dose 1,000 mls @ ud .ROUTE .STK-MED ONE Morphine Sulfate 2 mg 04/15/21 09:59 Morphine Sulfate 2 Mg/Ml Inj IV 04/15/21 10:00 STAT ONE Lab/Rad Data: Laboratory Result Diagrams 04/15/21 09:32 04/15/21 09:32 Laboratory Results 04/15/21 04/15/21 Range/Units 09:32 09:32 WBC 21.2 H (4.0-10.5) K/mm3 RBC 4.03 L (4.1-5.6) M/mm3 Hgb 12.1 L (12.5-18.0) gm/dl Hct 37.0 L (42-50) % MCV 91.8 (78-100) fl MCH 30.0 (26-32) pg MCHC 32.7 (32-36) g/dl RDW 13.9 (11.5-14.0) % Plt Count 532 H (150-450) K/mm3 MPV 10.7 (7.5-11.0) fl Sodium 124 L (137-145) mmol/L Potassium 5.2 H (3.5-5.1) mmol/L Chloride 89 L (98-107) mmol/L Carbon Dioxide 12 L* (22-30) mmol/L Anion Gap 27.7 H (5-15) MEQ/L BUN 60 H (9-20) mg/dL Creatinine 1.85 H (0.66-1.25) mg/dL Estimated GFR 40.0 ML/MIN Glucose 528 H* (74-106) mg/dL Calcium 8.7 (8.4-10.2) mg/dL Total Bilirubin 0.80 (0.2-1.3) mg/dL AST 27 (17-59) U/L ALT 22 (0-50) U/L Alkaline Phosphatase 175 H (38-126) U/L Serum Total Protein 7.6 (6.3-8.2) g/dL Albumin 3.4 L (3.5-5.0) g/dL - Progress Progress: improved Progress Note: Dr. Cheek our radar tester evaluated patient bedside. He feels that patient should be transferred. I spoke to Dr. Frey ER physician at [facility]. We consulted with Dr. Norris Dawson vascular surgeon who accepts transfer. Patient will receive vancomycin clindamycin and cefepime IV antibiotic. Tetanus is up-to-date. 04/15/21 09:37 Counseled pt/family regarding: diagnosis, rad results - Departure Departure Disposition: Transfer Clinical Impression: Gangrene of right foot, Leukocytosis, Thrombocytosis, Hyponatremia, Hyperkalemia, Metabolic acidosis, Acute renal injury, Hyperglycemia, DKA (diabetic ketoacidosis) Condition: Stable Critical Care Time: No Referrals: MELANIE GUTIÉRREZ MD [Primary Care Provider] - Follow up/PCP as directed
[2021-04-15] MEDS ORDERED: Levofloxacin 500MG/100ML D5W 500 MG/100 ML BAG IV STA (09:00)
[2021-04-15] MEDS ORDERED: CLINDAMYCIN-D5W 900 MG/50 ML*** 900 MG/50 ML BAG IV STA (09:01)
[2021-04-15] MEDS ORDERED: VANCOMYCIN 1 GRAM/200 ML BAG 1 GM/200 ML PIGGYBACK IV ONE ×2 (09:22→09:23)
[2021-04-15] MEDS ORDERED: CLINDAMYCIN-D5W 900 MG/50 ML*** 900 MG/50 ML BAG IV ONE (09:33)
[2021-04-15 09:35] LABS: Hemoglobin 12.1 gm/dl (12.5-18.0); Mean Cell Volume 91.8 fl (78-100); Mean Corpuscular Hgb Concent. 32.7 g/dl (32-36); Mean Platelet Volume 10.7 fl (7.5-11.0); Platelet Count 532 K/mm3 (150-450); Red Blood Count 4.03 M/mm3 (4.1-5.6); Red Cell Distribution Width 13.9 % (11.5-14.0); White Blood Count 21.2 K/mm3 (4.0-10.5)
[2021-04-15] MEDS ORDERED: Sodium Chloride 0.9% 1000 ML 1,000 ML ONE ×2 (09:36→10:10)
--- NOTE | 2021-04-15 09:36 | XRAY ---
Indication: Osteomyelitis. Comparison: None 3 nonweightbearing views right foot demonstrates distal soft tissue swelling, 2 medial soft tissue nodularities largest 2.7 cm, and diffuse subcutaneous emphysema centered around 1st-3rd MTP concerning for gas-forming infection. Partial 3rd toe amputation. No other bony, articular, or soft tissue abnormalities.
[2021-04-15 09:46] LABS: ALBUMIN 3.4 g/dL (3.5-5.0); ANION GAP 27.7 MEQ/L (5-15); BILIRUBIN,TOTAL 0.8 mg/dL (0.2-1.3); Calcium 8.7 mg/dL (8.4-10.2); Creatinine 1 1.85 mg/dL (0.66-1.25); Potassium 5.2 mmol/L (3.5-5.1); Total Protein 7.6 g/dL (6.3-8.2)
[2021-04-15] MEDS ORDERED: MORPHINE SULFATE 2 MG INJ ONE (10:10)
[2021-04-15] MEDS: MORPHINE SULFATE 2 MG INJ IV ONE ×2 (10:11→10:52)
[2021-04-15] MEDS ORDERED: Sodium Chloride 0.9% 1000 ML 1,000 ML IV SCH (10:15)
[2021-04-15 10:20] LABS: BAND 5 % (0.0-2.0); Lymphocytes 10 % (24-44); Monocyte 9 % (0.0-12.0); Neutrophils 76 % (36.-66.); Platelet Estimate INCREASED (NORMAL); Total Cells Counted 100
[2021-04-15 10:21] LABS: Toxic Granulation 1+
[2021-04-15 17:11] VITALS: BP 119/69; PULSE 96; O2SAT 96
== END 2021-04-15 11:15 | disposition short-term general hospital (02) ==
LOC: ED 08:29
DX: E11.52 Type 2 diabetes mellitus with diabetic peripheral angiopathy with gangrene (principal); I96 Gangrene, not elsewhere classified; E11.65 Type 2 diabetes mellitus with hyperglycemia; E11.10 Type 2 diabetes mellitus with ketoacidosis without coma; D72.829 Elevated white blood cell count, unspecified; D75.839 Thrombocytosis, unspecified; E87.1 Hypo-osmolality and hyponatremia; E87.5 Hyperkalemia; N28.9 Disorder of kidney and ureter, unspecified
CPT/HCPCS: 36000; 36415; 73630; 80053; 85025; 87040; 94760; 96360; 96365; 99285; J2270; J3370

== ENCOUNTER 2021-11-12 07:26 | Day surgery (SDC) | payer OTHER ==
[2021-11-12] MEDS ORDERED: LIDOCAINE HCL 1% 50 MG/5 ML VL PF IJ ONE (07:27)
[2021-11-12] MEDS ORDERED: Epinephrine Preservative Free 1 MG/ML IJ ONE (07:27)
[2021-11-12] MEDS ORDERED: Lactated Ringers 1,000 ML IV SCH (07:30)
[2021-11-12] MEDS ORDERED: BETADINE 5% OPHTHALMIC 30 ML OP ONE (07:30)
[2021-11-12] MEDS ORDERED: TETRACAINE 0.5% STERI-UNIT SOL OP ONE ×2 (07:30)
[2021-11-12] MEDS ORDERED: cefUROXime sodium 0.005 GM in Sodium Chloride Flush 30 ML*** 0.5 ML IJ ONE (07:30)
[2021-11-12] MEDS ORDERED: Ak-Dilate OPHTHALMIC*** 1.065 ML, Cyclogyl 1% OPHTH SOL 1.065 ML, GATIFLOXACIN 0.5% OPH... OP ONE ×4 (07:30)
[2021-11-12] MEDS ORDERED: NON-FORMULARY ITEM OP ONE (07:30)
[2021-11-12] MEDS ORDERED: Lactated Ringers 1,000 ML IV ONE (08:09)
[2021-11-12] MEDS ORDERED: Pepcid 20 MG VIAL IV ONE ×2 (08:32→08:42)
[2021-11-12] MEDS ORDERED: Reglan 10 MG/2 ML IV ONE (08:41)
[2021-11-12] MEDS ORDERED: Zofran 4 MG/2 ML VIAL IV PRN (09:30)
[2021-11-12] MEDS ORDERED: DIPRIVAN 200 MG/20 ML IV ONE (09:31)
[2021-11-12] MEDS ORDERED: Visionblue IO ONE (10:00)
[2021-11-12 10:21] VITALS: O2SAT 96
[2021-11-12 10:32] VITALS: PULSE 56
[2021-11-12 10:46] VITALS: BP 140/86
== END 2021-11-12 10:38 | disposition home or self-care (01) ==
LOC: SDC 07:26
PROVIDERS: ATTEND Ophthalmology
DX: H25.811 Combined forms of age-related cataract, right eye (principal); E11.9 Type 2 diabetes mellitus without complications
CPT/HCPCS: 66982; 82947; C1780; J0171; J2001; J2704; A9270-GY

== ENCOUNTER 2022-11-11 06:00 | Day surgery (SDC) | payer OTHER ==
[~2022-11-11 06:00] MED LIST: Ak-Dilate OPHTHALMIC*** 1.065 ML, Cyclogyl 1% OPHTH SOL 1.065 ML, GATIFLOXACIN 0.5% OPH... OP ONE; BETADINE 5% OPHTHALMIC 30 ML OP ONE; Lactated Ringers 1,000 ML IV SCH; NON-FORMULARY ITEM OP ONE; TETRACAINE 0.5% STERI-UNIT SOL OP ONE; cefUROXime sodium 0.005 GM in Sodium Chloride Flush 30 ML*** 0.5 ML IJ ONE
[2022-11-11] MEDS ORDERED: Epinephrine Preservative Free 1 MG/ML IJ ONE (06:01)
[2022-11-11] MEDS ORDERED: Lactated Ringers 1,000 ML IV ONE (06:22)
[2022-11-11] MEDS ORDERED: Zofran 4 MG/2 ML VIAL IV PRN (07:45)
[2022-11-11] MEDS ORDERED: DIPRIVAN 200 MG/20 ML IV ONE ×2 (08:33→08:45)
[2022-11-11 08:57] VITALS: BP 110/76; PULSE 68; O2SAT 94
== END 2022-11-11 09:20 | disposition home or self-care (01) ==
LOC: SDC 06:00
PROVIDERS: ATTEND Ophthalmology
DX: H25.812 Combined forms of age-related cataract, left eye (principal); E11.9 Type 2 diabetes mellitus without complications
CPT/HCPCS: 82947; C1780; J0171; J2704; A9270-GY